=== PATIENT | female | born 1980 | race Caucasian/White ===

== ENCOUNTER 2024-02-25 10:42 | Day surgery (SDC) | payer OTHER ==
[2024-02-23 13:43] VITALS: BMI 24.3
[2024-02-25] MEDS ORDERED: Bupivacaine/Epinephrine 0.25% 30 ML VIAL ONE (10:59)
[2024-02-25] MEDS ORDERED: PROPOFOL 20 ML ONE (10:59)
[2024-02-25] MEDS ORDERED: Rocuronium Bromide 10 MG/ML (10ML VIAL) ONE (11:00)
[2024-02-25] MEDS ORDERED: Lidocaine 1% PF 5 ML VIAL ONE (11:00)
[2024-02-25] MEDS ORDERED: Indocyanine Green 25 MG/10 ML VIAL ONE (11:33)
[2024-02-25] MEDS ORDERED: fentaNYL 50 mcg/mL 1 mL Vial ONE ×3 (11:37→13:31)
[2024-02-25] MEDS ORDERED: ceFOXitin 1 GM VIAL ONE (11:49)
[2024-02-25] MEDS ORDERED: Ondansetron PF 4 MG/2 ML Vial ONE (12:06)
[2024-02-25] MEDS ORDERED: Dexamethasone 4 mg/ml Vial ONE (12:06)
[2024-02-25] MEDS ORDERED: Ketorolac Tromethamine 30 MG (1 mL) VIAL ONE (12:27)
[2024-02-25] MEDS ORDERED: SUGAMMADEX SODIUM 200 MG/2 ML VIAL ONE (12:29)
[2024-02-25] MEDS ORDERED: HYDROcodone/Acetaminophen 5/325 mg Tablet ONE (13:53)
== END 2024-02-25 14:45 | disposition home or self-care (01) ==
LOC: CSHSDC 10:42
PROVIDERS: ATTEND Surgery
PROC: BF50200 Other Imaging of Bile Ducts using Fluorescing Agent, Indocyanine Green Dye, Intraoperative (ICD-10-PCS; principal; 2024-02-25)
PROC: 0FT44ZZ Resection of Gallbladder, Percutaneous Endoscopic Approach (ICD-10-PCS; principal; 2024-02-25)
DX: K80.10 Calculus of gallbladder with chronic cholecystitis without obstruction (principal); Z88.2 Allergy status to sulfonamides; Z88.0 Allergy status to penicillin
CPT/HCPCS: 88304; C1889; J0694; J1100; J1885; J2405; J2704; J3010